=== PATIENT | female | born 1940 | race Caucasian/White ===

== ENCOUNTER 2016-12-11 04:18 | Inpatient (IN) | payer OTHER ==
--- NOTE | ~2016-12-11 | CO ---
Unit #: [id number] #: [id number] Patient: SHAHEEN FARIAS [id number] [address] [place], [place] [address] [id number] I MR#: [id number] NAME: SHAHEEN FARIAS ROOM: 559 Age: 76 Sex: F Admission Date: 12/11/2016 : 1940 Attending Physician: Lori Vuong M.D. Primary Care Physician: Malcolm Baker M.D. CONSULTATION REPORT REASON FOR CONSULT Pulmonary embolus. HISTORY OF PRESENT ILLNESS This is a pleasant 76-year-old with past medical history significant for peptic ulcer disease, COPD, and intracranial brain aneurysm status post clipping in 1992, who presented to the emergency room unable to breathe. The patient was just discharged from the hospital two days ago to home; however, she continued to be short of breath and early yesterday she was unable to catch her breath. Upon presentation to our emergency room, the patient had a CTA of her chest that showed multiple pulmonary emboli. The patient stated that she has never been diagnosed with any clotting disorder, however, her mother had some type of clots that she could not recall. The patient is up and walking at home but there is concern of falling and sometimes unstable gait. The patient denied any recent trauma or travel. She is not on any hormonal therapy. PAST MEDICAL HISTORY 1. COPD. 2. Emphysema. 3. GERD. 4. Peptic ulcer disease. 5. Intracranial aneurysm. 6. Chronic pain. PAST SURGICAL HISTORY 1. Brain aneurysm clipping. 2. Colonoscopy. 3. Polypectomy. HOME MEDICATIONS 1. Trazodone. 2. Fish oil. 3. Multivitamin. 4. Ventolin. 5. Omeprazole. 6. Colace. 7. Zyrtec. 8. Neurontin. Unit #: [id number] #: [id number] Patient: SHAHEEN FARIAS 9. Pravachol. 10. Spiriva. 11. Lidoderm. 12. Advair. 13. Combivent. 14. Xanax. ALLERGIES No known drug allergies. SOCIAL HISTORY The patient is a lifetime smoker. No history of alcohol or drug abuse. FAMILY HISTORY Hypertension. REVIEW OF SYSTEMS Twelve-point review of systems was obtained and negative except for what was mentioned in the HPI. PHYSICAL EXAMINATION VITAL SIGNS: Blood pressure 149/62, respiratory rate 20, O2 saturation 97% on room air. GENERAL: The patient is in acute distress. HEENT: Atraumatic, normocephalic. PERRLA. EOMI. NECK: Supple. No JVD. No lymphadenopathy. LUNGS: Decreased breath sounds bilaterally but no wheezing. HEART: S1, S2. Systolic murmur. ABDOMEN: Soft, nontender. Bowel sounds are positive. No hepatosplenomegaly. EXTREMITIES: Slightly edematous in the lower extremities but the upper extremities are fine. NEUROLOGIC: Awake, alert, and oriented x3. No focal motor/sensory deficit. SKIN: No rashes. DIAGNOSTIC STUDIES LABORATORY: Blood gas showed a pO2 of 60. Creatine 0.8, Hemoglobin 16.1. IMAGING: CT chest showed multiple pulmonary emboli. ASSESSMENT 1. Acute hypoxic respiratory failure. 2. Acute pulmonary embolus. 3. Chronic obstructive pulmonary disease. 4. Hypertension. 5. Hyperlipidemia. PLAN 1. Patient will be continued on oxygen and titrated down/off as tolerated. 2. Even though patient had the recent hospitalization, she stated that she was walking in the hallway and she was relatively active. She denied any recent travel, trauma or immobilization. 3. At this point, it seems that her pulmonary embolus is a provoked one rather than unprovoked which means she will need lifelong anticoagulation. However, the patient is well known to have a history of peptic ulcer disease and brain aneurysm in 1992, in Unit #: [id number] #: [id number] Patient: TARRENCE,NEOMIA H addition to unstable gait and history of falls. 4. At this point, patient is on Lovenox but we need to be very jackson and careful in choosing type of treatment and length of therapy. I think the safest will be to go with Coumadin to have the option of reversal if needed. The length of therapy needs to be determined by Hematology. 5. Patient will be continued on bronchodilator. 6. Will obtain 2D echo and troponin to rule out any right heart strain. Dictated by... Lashaun Gloria TD: 12/11/2016 21:57 JOB #: [id number] CONSULTATION REPORT X TEDDY FERNANDEZ MD CONSULTATION REPORT
--- NOTE | ~2016-12-11 | DS ---
Unit #: [id number] #: [id number] Patient: SHAHEEN DELGADILLO [id number] [address] [address] [id number] I MR#: [id number] NAME: SHAHEEN DELGADILLO. ROOM: 559 Age: 76 Sex: F Admission Date: 12/11/2016 : 1940 Discharge Date: 12/22/2016 Attending Physician: Lori Vuong M.D. Primary Care Physician: Malcolm Baker M.D. DISCHARGE SUMMARY FINAL DIAGNOSES 1. Acute hypoxic respiratory failure. 2. Pulmonary embolism. 3. Pulmonary hypertension. 4. Malnutrition. 5. Anticoagulation therapy with Coumadin. 6. Chronic obstructive pulmonary disease. 7. History of intracranial aneurysm in the past. 8. Chronic pain. 9. Tobacco abuse which is ongoing. 10. History of chronic degenerative disk disease and spinal stenosis. 11. Anxiety. DISCHARGE MEDICATIONS 1. Coumadin 4 mg p.o. daily. 2. Nebulizer treatment q.i.d. 3. Advair 250/50 one puff inhaler twice a day. 4. Spiriva one inhaler daily. 5. Neurontin 100 mg at bedtime. 6. Trazodone continue home dose. 7. Lidoderm continue home dose. 8. Xanax 0.5 mg q.i.d. p.r.n. 9. Colace 100 mg twice a day. 10. Pravachol 20 mg at bedtime. 11. Fish oil capsules daily. 12. Multivitamin daily. 13. Percocet 10/325 one tablet q.6 p.r.n. 14. Omeprazole 40 mg daily. CONSULTATION DURING HOSPITALIZATION 1. Dr. Wiseman from pulmonary services. 2. Hematology, Dr. Brown. HOSPITAL COURSE Ms. Delgadillo is a 76-year-old female who was admitted with acute shortness of breath. She was recently discharged from hospital on December 06, 2016, after being treated for COPD exacerbation. The patient returned back with the same kind of symptom. CTA of the chest was done and patient was found to have acute pulmonary embolism. The patient was started on Lovenox and later on switched to Coumadin. PT/OT was continued. We were awaiting subacute rehab placement, but patient is able to ambulate well and is able to go home. The patient will be discharged home with her daughter. Unit #: [id number] #: [id number] Patient: SHAHEEN DELGADILLO DIAGNOSTIC STUDIES LABORATORY: Lab workup on discharge: PT/INR is 16.6 and 1.6. BMP: Sodium 139, potassium 4.1, chloride 105, BUN 10, creatinine 1. WBC 8.6, hemoglobin 12.7, hematocrit 38.3, platelet count 227,000. Antithrombin III is 114, which is in normal range. Protein C activity is more than 200. IMAGING: Significant radiological studies done were: CT of the chest which showed definite pulmonary embolism present in the left system, largest embolus being in the left upper lobe where it is completely occluding the small branch. Ultrasound of lower extremities was negative for any DVT. PHYSICAL EXAMINATION VITAL SIGNS: On discharge, blood pressure is 105/47, respiratory rate 20, pulse is 79, temperature 98.6. CHEST: Decreased air entry bilaterally. CARDIOVASCULAR: S1, S2 positive. Regular rhythm. DISCHARGE INSTRUCTIONS 1. Followup primary care provider in one week. 2. [facility] to follow for PT/OT. 3. PT/INR on . 4. Arrange for home O2, keep saturation above 94%. 5. Patient's daughter is aware of patient's discharge. Dictated by... Lashaun Varma/christian TD: 12/23/2016 10:24 JOB #: [id number] DISCHARGE SUMMARY X Lori Vuong MD X DISCHARGE SUMMARY
--- NOTE | ~2016-12-11 | US84 ---
[id number] [facility] [address] [place], [place] [address] [id number] I MR#: [id number] Acc #: [id number] NAME: SHAHEEN FARIAS : 1940 SEX: F STUDY DATE/TIME: 12/11/2016 19:20 UNIT: C5B ROOM: 559 STUDY DESCRIPTION: US LE Veins Complete Ivan Stdy Attending Physician: Lori Vuong M.D. Ordering Physician: Tyler Rivera M.D. Primary Care Physician: Malcolm Baker M.D. MEDICAL IMAGING REPORT This report is preliminary unless electronic signature is present EXAM Bilateral lower extremity sherrell ultrasound. DATE OF EXAM 12/11/2016 HISTORY Bilateral lower extremity pain, chronic for 4 years. Shortness of air for 1 week. Pulmonary embolus on CT earlier today. TECHNIQUE Venous ultrasound examination of both lower extremities was performed using grayscale, spectral Doppler and color flow Doppler imaging. FINDINGS The examination is negative. There is no evidence of deep venous thrombus from the groin to the lower calf bilaterally. Visualized greater saphenous veins are also patent. IMPRESSION Negative examination. No evidence of lower extremity DVT. Dictated by... Rick Umanzor M.D. THIS IS AN ELECTRONICALLY VERIFIED REPORT Rick Umanzor M.D. at 12/12/2016 3:36 PM ECTOR/mile TD: 12/12/2016 00:29 JOB #: [id number] MEDICAL IMAGING REPORT COPY
--- NOTE | ~2016-12-11 | CR63 ---
[facility] A Service of [facility] RADIOLOGY TEXT RESULTS PATIENT: SHAHEEN FARIAS LOCATION: [place] [address] : [birth year] UNIT #: [id number] AGE: [address]: Lori Vuong MD SEX: F ORDER DR: [id number] [facility] [address] [place], [place] [address] [id number] I MR#: [id number] Acc #: [id number] NAME: SHAHEEN FARIAS. : 1940 SEX: F STUDY DATE/TIME: 12/15/2016 13:29 UNIT: [facility] ROOM: [facility] STUDY DESCRIPTION: CR Chest 2 View Attending Physician: Lori Vuong M.D. Ordering Physician: Dino Wiseman M.D. Primary Care Physician: Malcolm Baker M.D. MEDICAL IMAGING REPORT This report is preliminary unless electronic signature is present EXAM PA and lateral chest 12/15/2016 INDICATIONS Shortness of air, weakness for 3 days. COMPARISON 12/11/2016 FINDINGS Today's PA and lateral view of the chest is compared with 12/11/2016. Heart size and vascularity are normal and the lungs are clear. Bones are unremarkable. IMPRESSION No active disease. Dictated by... Vasu Javier M.D. THIS IS AN ELECTRONICALLY VERIFIED REPORT Vasu Javier M.D. at 12/15/2016 4:00 PM CASSY/ike TD: 12/15/2016 15:16 JOB #: [id number] MEDICAL IMAGING REPORT COPY
--- NOTE | ~2016-12-11 | CO ---
Unit #: [id number] #: [id number] Patient: SHAHEEN FARIAS [id number] [place] [id number] [facility]. [place], [place] [address] [id number] I MR#: [id number] NAME: SHAHEEN FARIAS. ROOM: 559 Age: 76 Sex: F Admission Date: 12/11/2016 : 1940 Attending Physician: Lori Vuong M.D. Primary Care Physician: Malcolm Baker M.D. CONSULTATION REPORT HISTORY OF PRESENT ILLNESS Ms. Fuller is a very pleasant 76-year-old lady with a diagnosis of acute pulmonary embolus, which was the reason for consult. The story is a very pleasant lady who is 76 years old. She has been a long-term smoker and continues to smoke. She is debilitated and talking to herself. She has difficulty getting even up a flight of stairs in her house to go to get in and she has difficulty getting to and from the bathroom. She certainly is not able to provide her activities of daily living and she developed COPD exacerbation, was recently hospitalized, was discharged home last Wednesday. She was readmitted with worsening shortness of breath that was acute and was found on CT scan to have pulmonary embolus. She was admitted to the hospital on that day. She had an ultrasound of the legs that was negative and she has a family history of her mother having a clot, but she was aged 86 and it was provoked. Her mother interestingly had 10 children, did not have a clot early in life. She has 2 daughters. She personally did not have a clot early in life. She does not have varicose veins. She does not have any other family history of clotting. Besides immobility, the smoking of 1 to 2 packs per day is a risk factor and the illness has been noted. REVIEW OF SYSTEMS 1. Positive for shortness of breath. 2. Negative for chest pain, she denies that. 3. Negative for nausea or vomiting. 4. Negative for swelling in the legs. 5. Negative for varicose veins. 12-point review of systems is otherwise negative except for being debilitated. She got an ECOG performance status of 3. PAST MEDICAL HISTORY Significant for: 1. Emphysema. 2. Peptic ulcer disease. 3. Intracranial aneurysm that was clipped. 4. Chronic pain. 5. Chronic debility and poor performance status. PAST SURGICAL HISTORY Positive for: 1. Brain aneurysm clipping. 2. Colonoscopy with polypectomy. SOCIAL HISTORY 1. Smoker with greater than 50 pack-year smoking history. She continues Unit #: [id number] #: [id number] Patient: SHAHEEN FARIAS to smoke at least a pack a day. 2. Denies alcohol. 3. Denies illicit drug use. FAMILY HISTORY Positive for her mother having a clot at age 86, but mother had 10 children, had no clotting problems and had no varicose veins. No other family history of clotting disorders is noted. PHYSICAL EXAMINATION VITAL SIGNS: This is a 76-year-old female, in no acute distress. VITAL SIGNS: She is with a blood pressure of 119/70, heart rate 77, and respirations are elevated today in the 20 to 22 range, but she appears comfortable at rest. Reportedly, she gets into respiratory distress if she moves at all. She is afebrile with a temperature of 98.1. HEENT: Her eyes show no scleral icterus. Pupils are equal. Mouth is moist. Hearing is intact. NECK: Supple. No JVD. Trachea midline. LUNGS: Decreased breath sounds symmetrically. Wheezing is noted. HEART: Regular rate and rhythm. No peripheral edema. ABDOMEN: Soft, nontender, and nondistended. She has no cervical or supraclavicular adenopathy. SKIN: No rashes, ulcers, or nodules. NEUROLOGIC: She is awake and alert, answers questions appropriately. Cranial nerves II through XII are grossly intact. Face is symmetric with no focal deficits. She musculoskeletal jackson had no clubbing, cyanosis, or edema today. She does not have any joint effusions or pain. No focal complaints. She did not walk because she gets short of breath even sitting up in bed at the current time. The remainder of the 12-point physical exam is negative. DIAGNOSTIC STUDIES IMAGING STUDIES: CT angio is positive for pulmonary embolus. Ultrasound of the lower extremities is negative for DVT. LABORATORY RESULTS: Review of laboratory studies showed hemoglobin and hematocrit of 16 and 57.9 and white count 10.9. PT and PTT of 10 and 23.4. ASSESSMENT AND PLAN 1. Very pleasant lady with a diagnosis of pulmonary embolus. Continue Lovenox. I think we certainly could switch her over to either Xarelto or Coumadin depending on what her insurance will cover or alternative Eliquis. I would leave her on long-term anticoagulation at this point. 2. She has tobacco use and I have told her that this is the single greatest thing that we can do to impact her clotting and that she needs to be off tobacco. We have talked about Nicorette minis. We have talked about patches. We have talked about other options. Today, she is stating that she gets some anxiety with life and uses tobacco as a crutch and we have talked about how to address that and I am going to check a few basic things for hypercoag. Certainly, the antiphospholipid antibodies and lupus anticoagulant because if that were positive, we really would need to add an aspirin on board. Additionally, we will have her screen for the major clotting risk factors, although the history does not support that. I am not going to do an extensive workup because she has not had a history of miscarriages, has not had clotting with , and her mother did not either. I would like to thank you for the consult. Unit #: [id number] #: [id number] Patient: SHAHEEN FARIAS Dictated by... Lashaun Villa/pina TD: 12/12/2016 20:14 JOB #: [id number] CONSULTATION REPORT X X CONSULTATION REPORT
--- NOTE | ~2016-12-11 | EKG ---
PATIENT: SHAHEEN FARIAS UNIT #: [id number] Ventricular Rate: 81 BPM Atrial Rate: 81 BPM P-R Interval: 118 ms QRS Duration: 78 ms Q-T Interval: 374 ms QTC Calculation(Bezet): 434 ms P [place]: 62 degrees Calculated R [place]: 160 degrees Calculated T [place]: -7 degrees Diagnosis Line: Normal sinus rhythm Diagnosis Line: Possible Left atrial enlargement Diagnosis Line: Right ventricular hypertrophy Diagnosis Line: Possible Lateral infarct (cited on or before Diagnosis Line: 02-DEC-2016) Diagnosis Line: Abnormal ECG Diagnosis Line: When compared with ECG of 02-DEC-2016 17:56, Diagnosis Line: No significant change was found Diagnosis Line: Confirmed by RAJ GRANADOS MD ([id number]) on 12/11/2016 Diagnosis Line: 5:24:14 PM INTERPRETING MD: DARWIN GRACIA
--- NOTE | ~2016-12-11 | HP ---
Unit #: [id number] #: [id number] Patient: SHAHEEN DELGADILLO [id number] [place] [id number] [facility]. [place], [place] [address] [id number] I MR#: [id number] NAME: SHAHEEN DELGADILLO ROOM: 559 Age: 76 Sex: F Admission Date: 12/11/2016 : 1940 Attending Physician: Lori Vuong M.D. Primary Care Physician: Malcolm Baker M.D. HISTORY AND PHYSICAL ADMISSION DIAGNOSES 1. Acute PE. 2. History of COPD. 3. History of intracranial aneurysm, status post clipping. 4. Chronic pain. 5. Continues tobacco use. HISTORY OF PRESENT ILLNESS Ms. Shaheen Delgadillo is a 76-year-old, female, patient of Dr. Navas, who comes to the emergency room with the complaints of acute onset of shortness of air and dyspnea with getting worse on exertion. Initially, patient was treated as presumed acute exacerbation of COPD. Patient is status post evaluation per pulmonary. CT angio was done, which showed an acute PE. Patient was started on a treatment dose of Lovenox and admitted. She denies any active chest pain. Denies any headache or dizziness. Denies any fever, chills, nausea, vomiting, diarrhea, or abdominal pain. She continues to smoke and has been a lifetime smoker. REVIEW OF SYSTEMS So, 12-point review of systems on this patient is basically negative, except as above. PAST MEDICAL HISTORY Significant for history of emphysema, peptic ulcer disease, intracranial aneurysm, and chronic pain. PAST SURGICAL HISTORY Significant for brain aneurysm clipping and colonoscopy with polypectomy. SOCIAL HISTORY She is an active smoker and has been an active smoker all her life. Denies any alcohol or illicit drug abuse. FAMILY HISTORY Unremarkable. PHYSICAL EXAMINATION GENERAL APPEARANCE: Patient is a 76-year-old, female in no acute distress. VITAL SIGNS: BP 119/70, heart rate 77, respirations 27, and temperature 98.1. HEENT: Head is atraumatic. Pupils are equal, round, and reactive to light and accommodation. Extraocular muscles intact. Oropharynx clear. NECK: Supple. No mass, no JVD, and no bruits. Unit #: [id number] #: [id number] Patient: SHAHEEN DELGADILLO H CHEST: Diminished bilaterally with some occasional expiratory wheezing. CARDIOVASCULAR: S1 and S2. No murmurs. ABDOMEN: Soft, nontender, and nondistended. LOWER EXTREMITIES: Without any cyanosis, clubbing, or edema. NEUROLOGIC: Patient grossly intact. No focal deficits. DIAGNOSTIC STUDIES IMAGING: Chest x-ray shows cardiomegaly. CT angio, again, positive for PE. CARDIOVASCULAR: 2D echo is pending. LABORATORY: Chemistry basically unremarkable. Set of cardiac enzymes negative. Coagulation panel: PT, INR, and PTT 10.1, 1, and 23.4. H and H 16.1 and 57.9 and white count 10.9. ASSESSMENT AND PLAN 1. Acute PE. Continue Lovenox. Hematologic consult is pending. 2. COPD. Continue bronchodilators. Status post evaluation per pulmonary. 3. History of intracranial aneurysm, status post clipping. 4. History of chronic pain. 5. Continue tobacco use. Counseled on importance of quitting. 6. GI and DVT prophylaxes. Continue current PPI and Lovenox. Dictated by Lashaun Kramer/sally TD: 12/12/2016 08:13 JOB #: [id number] HISTORY AND PHYSICAL X Tyler Rivera MD HISTORY AND PHYSICAL
--- NOTE | ~2016-12-11 | CR72 ---
[facility] A Service of [facility] & [facility] RADIOLOGY TEXT RESULTS PATIENT: SHAHEEN FARIAS LOCATION: [place] [address] : [birth year] UNIT #: [id number] AGE: [address]: Lori Vuong MD SEX: F ORDER DR: [id number] [facility] [address] [place], [place] [address] [id number] I MR#: [id number] Acc #: [id number] NAME: SHAHEEN FARIAS. : 1940 SEX: F STUDY DATE/TIME: 12/11/2016 03:55 UNIT: CEDOF ROOM: [address]48[address] STUDY DESCRIPTION: CR Chest Single View Portable Attending Physician: Lori Vuong M.D. Ordering Physician: Darrius Rose D.O. Primary Care Physician: Malcolm Baker M.D. MEDICAL IMAGING REPORT This report is preliminary unless electronic signature is present EXAM Portable chest, 12/11 at to 0355 hours. INDICATIONS Shortness of air, which is ongoing, but worse today. Patient recently in the hospital. FINDINGS AP portable chest is compared with 12/04/2016. The lungs are emphysematous, but clear except for granulomatous calcification on the left side. Cardiomegaly is stable. No pneumothorax. IMPRESSION Stable cardiomegaly with emphysema. No acute findings in the chest. Dictated by... Eliezer Prado Jr., M.D. THIS IS AN ELECTRONICALLY VERIFIED REPORT Eliezer Prado Jr., M.D. at 12/14/2016 7:20 AM SUE/sally TD: 12/11/2016 08:30 JOB #: [id number] MEDICAL IMAGING REPORT COPY
--- NOTE | ~2016-12-11 | A ---
[facility] Nutrition Therapy DATE: 12/21/16 Patient: SHAHEEN FARIAS Physician: KEYANA Address: [address] Room/Bed: [address] [place] [address], Zip: [place] [phone] Admit Date: 12/11/16 Date of : [birth year] Height: 5 3 Weight: 109 49.6 NUTRITIONAL ASSESSMENT: REASON: LOS NUTRITION ASSESSMENT 76 yo female admitted for acute hypoxic respiratory failure, PE, severe pulmonary HTN PMH: COPD, emphysema, PUD, pulmonary HTN Anthropometrics: Ht: 63" Adm wt: 50.8 kg BMI: 19.8 Labs: Reviewed. No new since 12/19. Meds: Coumadin, remeron, colace, lipitor, MOM, protonix, therapeutic formula, fish oil, NaCl I/O & Bowel function: 2300/2901, last BM 12/20 Skin Integrity: Scabbed area right ear Scar left side Bruising BUE Edema: None noted Diet: Regular Assessment: Chart reviewed, events noted. Pt admitted for SOA. RD seeing the pt for LOS nutrition assessment. RD assessed this pt during a recent previous admission on 12/03/16. At that time, the pt reported ~15# weight loss in 3 months (12% weight loss). Based on her weight today, the pt has lost an additional 6.6#, for a total of 21.6# weight loss. Please note, RD was not consulted during this admission, and malnutrition has been noted in the pt's chart. RD spoke with the pt at bedside. Pt reports eating poorly [employer] due to decreased appetite and not wanting to prepare meals; however, she reported that her MD gave her something to improve her appetite, and she is eating better now (reports ~50% of meals). RD reviewed the importance of adequate nutrient intake and weight gain/ maintenance. Pt agreed and reports that she occasionally receives Ensure supplements with her meals, and discussed having ondl-fs-psvbrqb foods on hand. RD encouraged the pt to consume Ensure BID, and will order this. Pt denied having any further questions, thankful for RD visit. Dx: Unplanned weight loss RT decreased appetite AEB 21.6# weight loss in 4 months, poor intake reported [employer]. Intervention: [facility] DATE: 12/21/16 Patient: SHAHEEN FARIAS Physician: KEYANA Address: [address] Room/Bed: [address] [place] [address], Zip: [place] [address] Admit Date: 12/11/16 Date of : [birth year] Height: 5 3 Weight: 109 49.6 1. Regular diet 2. 6 small meals 3. Ensure BID Monitoring, Evaluation and Goals: 1. Oral intake; tolerate >50-75% meals 2. Labs; WNL 3. Weight; prevent further weight loss, promote weight maintenance Recommendations: 1. Continue regular diet, adding 6 small meals to promote adequate nutrient intake. 2. Ensure vanilla once daily and Ensure strawberry once daily for supplemental nutrition. Pt is at mild-moderate nutritional risk. Respectfully, KYREE AGUILA RD, LD [facility] cc: client file
--- NOTE | ~2016-12-11 | CT16 ---
[facility] A Service of [facility] & [facility] RADIOLOGY TEXT RESULTS PATIENT: SHAHEEN FARIAS LOCATION: [facility] [id number] : 41 UNIT #: [id number] AGE: [address]: Lori Vuong MD SEX: F ORDER DR: [id number] [facility] [address] [facility]. [place], [place] [address] [id number] I MR#: [id number] Acc #: [id number] NAME: SHAHEEN FARIAS. : 1940 SEX: F STUDY DATE/TIME: 12/11/2016 6:36 UNIT: [facility] ROOM: [id number] STUDY DESCRIPTION: CT Angio Chest for PE Attending Physician: Lori Vuong M.D. Ordering Physician: Darrius Rose D.O. Primary Care Physician: Malcolm Baker M.D. MEDICAL IMAGING REPORT This report is preliminary unless electronic signature is present EXAM CT chest with pulmonary embolus protocol HISTORY Shortness of air for [address] chest 11/15/[address] exam was performed with one or more of the following radiation dose reduction techniques: automatic exposure control, adjustment of mA and/or kV according to patient size, and iterative reconstruction. FINDINGS The patient was given 80 cc of Isovue 370 and spiral imaging was performed through the chest. 3-D reconstructions of the pulmonary arteries were generated. There are multiple emboli present in the left pulmonary artery system. The largest one is in the left upper lobe branch where there is a long 3 x 7 mm embolus. In the left lower lobe branches, there are 2-3 tiny emboli measuring 5 mm or less. The aorta is normal in size, and there is no adenopathy. The visualized portions of the upper abdomen are normal. The lungs are clear. IMPRESSION 1. Definite pulmonary emboli present in the left system. The largest embolus being in the left upper lobe where it is completely occluding 1 small branch, and partially occluding the large branch. That embolus is about 3 cm in length, and wormlike. The other emboli are seen as small 5 mm or less filling defects in [facility] A Service of [facility] & [facility] RADIOLOGY TEXT RESULTS PATIENT: SHAHEEN FARIAS LOCATION: [facility] [address]-17 : 41 UNIT #: [id number] AGE: [address]: Lori Vuong MD SEX: F ORDER DR: the left lower lobe. 2. Otherwise, the study is negative. STAT * RESULT Dictated by... Vasu Javier M.D. THIS IS AN ELECTRONICALLY VERIFIED REPORT Vaus Javier M.D. at 12/11/2016 10:24 AM CASSY/betty TD: 12/11/2016 07:08 JOB #: [id number] MEDICAL IMAGING REPORT COPY
[2016-12-11 03:44] LABS: ARTERIAL BLD GAS O2 SATURATION 90.7 % (90.0-100.0); ARTERIAL BLOOD GAS CARBOXY HB 0.9 %sat (0.0-9.0); ARTERIAL BLOOD GAS HCO3 27.2 mmol/L; ARTERIAL BLOOD GAS MET HB 0.1 %sat (0.0-2.0); ARTERIAL BLOOD GAS PCO2 36.5 mmHg (35.0-45.0); ARTERIAL BLOOD GAS pH 7.479 (7.350-7.450)
[2016-12-11 03:45] LABS: ARTERIAL BLOOD GAS ART SITE LEFT BRACHIAL; ARTERIAL BLOOD GAS DELIVERY VENTURI MASK; ARTERIAL DRAW? YES
[2016-12-11 04:10] LABS: BASOPHIL% 0.1 % (0-2.5); EOSINOPHIL# 0.2 X10e3 (0-0.7); EOSINOPHIL% 1.5 % (0.0-7.0); HEMATOCRIT 47.9 % (35.0-45.0); HEMOGLOBIN 16.1 gm/dL (12.0-16.0); LYMPHOCYTE# 2.2 X10e3 (1.0-3.5); LYMPHOCYTE% 20.5 % (17.0-45.0); MEAN CELL VOLUME 96.6 FL (83-96); MEAN CORPUSCULAR HEMOGLOBIN 32.4 PG (28-34); MEAN CORPUSCULAR HGB CONC 33.6 g/dL (30-36); MONOCYTE# 1.2 X10e3 (0-1.0); NEUTROPHIL# 7.3 X10e3 (1.5-7.1); NEUTROPHIL% 66.9 % (40-75); PLATELET COUNT 261 X10e3 (140-420); RED BLOOD COUNT 4.96 X10e (3.90-5.30); RED CELL DISTRIBUTION WIDTH 14.5 % (11.0-15.5); WHITE BLOOD COUNT 10.9 X10e3 (4.0-10.5)
[2016-12-11 04:12] LABS: POC - CKMB 7.4 ng/mL (0.0-7.9); POC - TROPONIN <0.05 ng/mL (<=0.05)
[2016-12-11 04:14] LABS: DIFF IND NO
[~2016-12-11 04:18] MED LIST: ADVAIR 115-21; ADVAIR 250-501 EAC1 INH; ADVAIR 250-501 EACH IH; ADVAIR 250-501 EACH INH; ADVAIR INH; ALBUTEROL17 GM INH; ALPRAZOLAM PO; ANTIVERT PO; CELEBREX PO; CENTRUM SILVER PO; CIPRO PO; CIPRO250 MG PO; CLOBETASOL 0.0560 GM TOP; COMBIVENT U/D3 M2 INH; DEMEROL PO; DOCUSATE SODIU100 MG PO; FENTANYL1 PATCH .7 TOP; FISH OIL 1,001000 M1 PO; LIDODERM30 EA TOP; LORTAB 10/500 T1 TAB PO; NEURONTIN100 MG PO; NEXIUM PO; NICOTINE TRANSD21 MG EXT; OMEPRAZOLE20 M2 PO; PERCOCET; PERCOCET 10/3251 TAB PO; PERCOCET PO; PERCOCET10 PO; PHENERGAN PO; PRAVACHOL20 MG PO; PRILOSEC; PRILOSEC PO; PRILOSEC20 MG PO; PROTONIX PO; SPIRIVA18 MCG INH; SPIRIVA18 MCG PO; TRAZODONE HCL100 MG PO; TRAZODONE PO; XANAX0.5 M1 PO; ZYRTEC10 M1 PO
[2016-12-11 04:27] LABS: PARTIAL THROMBOPLASTIN TIME 23.4 SECONDS (23.5-31.3); PROTHROMBIN TIME (PATIENT) 10.1 SECONDS (9.6-11.5)
[2016-12-11 04:55] LABS: ALKALINE PHOSPHATASE 74 U/L (32-92); ALT (SGPT) 44 U/L (10-40); AST (SGOT) 30 U/L (10-42); BILIRUBIN, DIRECT 0.1 mg/dL (0.0-0.2); BILIRUBIN,INDIRECT 0.6 mg/dL (0.0-0.9); BILIRUBIN,TOTAL 0.7 mg/dL (0.2-2.0); BLOOD UREA NITROGEN 12 mg/dL (9-23); CALCIUM SERUM 9.2 mg/dL (8.4-10.2); CARBON DIOXIDE 28 mmol/L (22-31); CHLORIDE 100 mmol/L (100-111); CREATININE SERUM 0.8 mg/dL (0.6-1.4); GLOM FILT RATE Estimated ABOVE60 mL/min (>60); GLUCOSE FASTING 95 mg/dL (70-110); POTASSIUM 4.1 mmol/L (3.5-5.1); PROTEIN TOTAL SERUM 7.4 g/dL (6.0-8.3); SODIUM 139 mmol/L (135-145)
[2016-12-11 09:44] LABS: POC - TROPONIN <0.05 ng/mL (<=0.05)
[2016-12-12 09:22] LABS: HEMATOCRIT 44.2 % (35.0-45.0); HEMOGLOBIN 14.4 gm/dL (12.0-16.0); MEAN CELL VOLUME 97.6 FL (83-96); MEAN CORPUSCULAR HEMOGLOBIN 31.9 PG (28-34); MEAN CORPUSCULAR HGB CONC 32.7 g/dL (30-36); MEAN PLATELET VOLUME 8.6 FL (6.5-11.5); RED BLOOD COUNT 4.53 X10e (3.90-5.30); RED CELL DISTRIBUTION WIDTH 14.6 % (11.0-15.5); WHITE BLOOD COUNT 10.8 X10e3 (4.0-10.5)
[2016-12-12 09:51] LABS: BLOOD UREA NITROGEN 16 mg/dL (9-23); CALCIUM SERUM 9.2 mg/dL (8.4-10.2); CARBON DIOXIDE 28 mmol/L (22-31); CHLORIDE 104 mmol/L (100-111); CREATININE SERUM 0.8 mg/dL (0.6-1.4); GLOM FILT RATE Estimated ABOVE60 mL/min (>60); GLUCOSE FASTING 130 mg/dL (70-110); POTASSIUM 4.1 mmol/L (3.5-5.1); SODIUM 141 mmol/L (135-145)
[2016-12-12 17:35] LABS: PROTHROMBIN TIME (PATIENT) 10.8 SECONDS (9.6-11.5)
[2016-12-13 05:48] LABS: BASOPHIL# 0.1 X10e3 (0-0.3); BASOPHIL% 0.9 % (0-2.5); EOSINOPHIL% 0.4 % (0.0-7.0); HEMATOCRIT 40.3 % (35.0-45.0); HEMOGLOBIN 13.2 gm/dL (12.0-16.0); LYMPHOCYTE# 1.7 X10e3 (1.0-3.5); LYMPHOCYTE% 22.1 % (17.0-45.0); MEAN CELL VOLUME 96.1 FL (83-96); MEAN CORPUSCULAR HEMOGLOBIN 31.4 PG (28-34); MEAN CORPUSCULAR HGB CONC 32.7 g/dL (30-36); MEAN PLATELET VOLUME 8.3 FL (6.5-11.5); MONOCYTE# 0.8 X10e3 (0-1.0); NEUTROPHIL% 65.6 % (40-75); PLATELET COUNT 211 X10e3 (140-420); RED BLOOD COUNT 4.19 X10e (3.90-5.30); RED CELL DISTRIBUTION WIDTH 14.4 % (11.0-15.5); WHITE BLOOD COUNT 7.6 X10e3 (4.0-10.5)
[2016-12-13 05:52] LABS: DIFF IND NO
[2016-12-14 05:05] LABS: HEMATOCRIT 39.5 % (35.0-45.0); HEMOGLOBIN 13.1 gm/dL (12.0-16.0); MEAN CORPUSCULAR HEMOGLOBIN 31.7 PG (28-34); MEAN CORPUSCULAR HGB CONC 33.1 g/dL (30-36); MEAN PLATELET VOLUME 8.5 FL (6.5-11.5); RED BLOOD COUNT 4.12 X10e (3.90-5.30); RED CELL DISTRIBUTION WIDTH 14.3 % (11.0-15.5); WHITE BLOOD COUNT 8.9 X10e3 (4.0-10.5)
[2016-12-14 06:18] LABS: BLOOD UREA NITROGEN 14 mg/dL (9-23); CALCIUM SERUM 8.8 mg/dL (8.4-10.2); CARBON DIOXIDE 27 mmol/L (22-31); CHLORIDE 103 mmol/L (100-111); CREATININE SERUM 0.7 mg/dL (0.6-1.4); GLOM FILT RATE Estimated ABOVE60 mL/min (>60); GLUCOSE FASTING 87 mg/dL (70-110); POTASSIUM 4.1 mmol/L (3.5-5.1); SODIUM 142 mmol/L (135-145)
[2016-12-15 07:37] LABS: PROTHROMBIN TIME (PATIENT) 10.9 SECONDS (9.6-11.5)
[2016-12-15 21:06] LABS: PROTEIN C ACTIVITY >200 % (70-180); PROTEIN S 115 % (60-140)
[2016-12-16 06:50] LABS: HEMATOCRIT 39.8 % (35.0-45.0); HEMOGLOBIN 13.2 gm/dL (12.0-16.0); MEAN CELL VOLUME 96.3 FL (83-96); MEAN CORPUSCULAR HEMOGLOBIN 31.9 PG (28-34); MEAN CORPUSCULAR HGB CONC 33.1 g/dL (30-36); MEAN PLATELET VOLUME 8.7 FL (6.5-11.5); RED BLOOD COUNT 4.13 X10e (3.90-5.30); RED CELL DISTRIBUTION WIDTH 13.9 % (11.0-15.5); WHITE BLOOD COUNT 8.8 X10e3 (4.0-10.5)
[2016-12-16 07:41] LABS: BLOOD UREA NITROGEN 15 mg/dL (9-23); BUN/CREATININE RATIO 21.42; CALCIUM SERUM 8.1 mg/dL (8.4-10.2); CARBON DIOXIDE 25 mmol/L (22-31); CHLORIDE 104 mmol/L (100-111); CREATININE SERUM 0.7 mg/dL (0.6-1.4); GLOM FILT RATE Estimated ABOVE60 mL/min (>60); GLUCOSE FASTING 99 mg/dL (70-110); POTASSIUM 4.3 mmol/L (3.5-5.1); SODIUM 132 mmol/L (135-145)
[2016-12-17 05:52] LABS: INR 2.1
[2016-12-17 05:56] LABS: PROTHROMBIN TIME (PATIENT) 22.7 SECONDS (9.6-11.5)
[2016-12-18 05:13] LABS: CARDIOLIPIN IGG (LUPUS) <14 GPL (<=14); CARDIOLIPIN IGM (LUPUS) <12 MPL (<=12); DRVVT CONFIRM Negative (Negative); DRVVT MIX INTERP (LUPUS) Not Indicated (()); HEXAGONAL PHASE CONF (LUPUS) Weak Positive (Negative); IMM PTT LA MIX NOT CORRECTED (()); INR LUPUS 1.2 (()); PROTROMBIN TIME LUPUS 12.4 sec (9.0-11.5); PT (LA MIX STUDY) 12.4 sec (<=11.5); PTT MIX INTERP Has been added (()); PTT-LA 45 sec (<=40); PTT-LA SCREEN (LUPUS) 45 sec (<=40); THROMBIN TIME LUPUS 27 sec (13-19); dRVVT SCREEN (LUPUS) 46 sec (<=45)
[2016-12-18 06:35] LABS: HEMATOCRIT 38.3 % (35.0-45.0); HEMOGLOBIN 12.7 gm/dL (12.0-16.0); MEAN CELL VOLUME 96.1 FL (83-96); MEAN CORPUSCULAR HEMOGLOBIN 31.9 PG (28-34); MEAN CORPUSCULAR HGB CONC 33.2 g/dL (30-36); MEAN PLATELET VOLUME 8.7 FL (6.5-11.5); RED BLOOD COUNT 3.99 X10e (3.90-5.30); RED CELL DISTRIBUTION WIDTH 13.9 % (11.0-15.5); WHITE BLOOD COUNT 8.6 X10e3 (4.0-10.5)
[2016-12-18 06:39] LABS: INR 2.6; PROTHROMBIN TIME (PATIENT) 28.8 SECONDS (9.6-11.5)
[2016-12-19 05:38] LABS: INR 2.5; PROTHROMBIN TIME (PATIENT) 27.7 SECONDS (9.6-11.5)
[2016-12-19 07:08] LABS: CALCIUM SERUM 9.1 mg/dL (8.4-10.2); GLOM FILT RATE Estimated 57.4 mL/min (>60); POTASSIUM 4.1 mmol/L (3.5-5.1)
[2016-12-21 06:01] LABS: INR 1.9
[2016-12-22 05:49] LABS: INR 1.6; PROTHROMBIN TIME (PATIENT) 16.6 SECONDS (9.6-11.5)
[2016-12-23 08:16] LABS: INR 1.9; PROTHROMBIN TIME (PATIENT) 20.2 SECONDS (9.6-11.5)
[2016-12-23] MEDS ORDERED: COUMADIN4 MG PO (12:13)
== END 2016-12-23 14:31 | disposition home health service (06) | DRG 175 ==
LOC: CED 04:18 → CEDOF 05:15 → C5B 15:09
PROVIDERS: Emergency Medicine; Hospitalist; Internal Medicine; Internal Medicine Hematology & Oncology; Internal Medicine Pulmonary Disease; Physician Assistant Medical
PROC: B24BYZZ Ultrasonography of Heart with Aorta using Other Contrast (ICD-10-PCS; principal; 2016-12-12)
DX: I26.99 Other pulmonary embolism without acute cor pulmonale (principal); J96.01 Acute respiratory failure with hypoxia; E46 Unspecified protein-calorie malnutrition; Z68.1 Body mass index [BMI] 19.9 or less, adult; J44.9 Chronic obstructive pulmonary disease, unspecified; G89.29 Other chronic pain; F17.210 Nicotine dependence, cigarettes, uncomplicated; Z87.11 Personal history of peptic ulcer disease; K21.9 Gastro-esophageal reflux disease without esophagitis; E78.5 Hyperlipidemia, unspecified; I10 Essential (primary) hypertension; M62.3 Immobility syndrome (paraplegic); I27.2 Other secondary pulmonary hypertension; Z79.01 Long term (current) use of anticoagulants; F41.9 Anxiety disorder, unspecified
CPT/HCPCS: 36415; 36600; 71010; 71020; 71275; 80048; 80076; 82553; 82803; 82947; 83605; 83880; 84484; 85025; 85027; 85301; 85303; 85306; 85597; 85598; 85610; 85613; 85670; 85730; 86146; 86147; 86148; 93005; 93306; 93970; 94640; 94664; 94760; 97110; 97116; 97163; 97166; 97530; 97535; 99285; G8978-GP; G8979-GP; G8987-GO; G8988-GO; G8989-GO; J1650; J2930; Q9967

== ENCOUNTER 2017-01-18 14:42 | Inpatient (IN) | payer OTHER ==
--- NOTE | ~2017-01-18 | DS ---
Unit #: [id number] #: [id number] Patient: SHAHEEN FARIAS [id number] [facility]. [place], [place] [address] [id number] I MR#: [id number] NAME: SHAHEEN FARIAS. ROOM: 562 Age: 76 Sex: F Admission Date: 01/18/2017 : 1940 Discharge Date: 01/22/2017 Attending Physician: Sole Espinosa M.D. Primary Care Physician: Malcolm Baker M.D. DISCHARGE SUMMARY DISCHARGE DIAGNOSRS 1. Acute new small pulmonary embolism right upper lobe. 2. 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 3. Xijcd-nz-pxvfmgu hypoxic respiratory failure. 4. Acute exacerbation of chronic obstructive pulmonary disease. 5. A 1.3 cm right-sided thyroid nodule. 6. History of intracranial clipping. 7. Chronic pain syndrome, opioid dependency. 8. Chronic anemia. 9. Chronic respiratory failure secondary to chronic obstructive pulmonary disease on three liters of home oxygen. BRIEF HOSPITAL COURSE A 76-year-old pleasant female patient with past medical history that is significant for bilateral pulmonary embolism on Coumadin therapy with erratic INR, history of intracranial clipping, chronic respiratory failure secondary to COPD on 3 to 4 L of home oxygen, was admitted through the [facility] emergency room with complaints of progressively worsening shortness of breath, productive cough and feeling unwell since last three to four days. [address] scan with PE protocol was done on admission which showed a new small pulmonary embolism in the right upper lobe area and resolution of previous pulmonary emboli as per the radiologist. Patient continued to receive IV Solu-Medrol, bronchodilator nebulizers and gradually improved during the course of the hospitalization. Oncology/Hematology was consulted. They advised the patient to be switched to Xarelto for chronic anticoagulation. With the assistance of case management patient will be discharged home today to continue chronic anticoagulation and steroid taper. DISCHARGE FOLLOWUP Follow up with: 1. Primary care provider in one week. 2. Dr. Espinosa, pulmonary clinic, in two to three weeks. 3. Hematology/Oncology, Dr. Yao, in one month. DISCHARGE MEDICATIONS As per med rec. PHYSICAL EXAMINATION AT DISCHARGE VITAL SIGNS: Temperature is 98.6, pulse rate is 58, respiratory rate is 16, blood pressure is 145/71, saturation of 93% on 4 L of oxygen. HEART: S1, S2 are heard. Regular rate and rhythm. LUNGS: Decreased air entry. No rhonchi. Unit #: [id number] #: [id number] Patient: SHAHEEN FARIAS ABDOMEN: Abdomen is soft, nontender, no hepatosplenomegaly. Bowel sounds were normoactive. NEUROLOGIC: Is awake, alert and oriented to time, place and person. There is no gross focal sensory or motor deficit. EXTREMITIES: There is no cyanosis, clubbing or pedal edema. Discharge time greater than 45 minutes. Dictated by... Aureliano Soria M.D. MM/fidelina TD: 01/24/2017 14:50 JOB #: [id number] DISCHARGE SUMMARY Page 1 of 1 X YFN SORIA DISCHARGE SUMMARY
--- NOTE | ~2017-01-18 | CR72 ---
[facility] A Service of [facility] & [facility] RADIOLOGY TEXT RESULTS PATIENT: SHAHEEN FARIAS LOCATION: [place] [address] : 41 UNIT #: [id number] AGE: [address]: Sole Espinosa MD SEX: F ORDER DR: [id number] [facility] [place] [address] [place], [place] [address] [id number] I MR#: [id number] Acc #: [id number] NAME: SHAHEEN FARIAS : 1940 SEX: F STUDY DATE/TIME: 01/18/2017 19:47 UNIT: [facility] ROOM: [facility] STUDY DESCRIPTION: CR Chest Single View Portable Attending Physician: Sole Espinosa M.D. Ordering Physician: Sole Espinosa M.D. Primary Care Physician: Malcolm Baker M.D. MEDICAL IMAGING REPORT This report is preliminary unless electronic signature is present EXAM Portable chest HISTORY Shortness of air for 5 months. COPD exacerbation. FINDINGS The cardiac size and pulmonary vascularity are within normal limits. Small calcified granulomas in the left lung and calcified left hilar nodes. No airspace infiltrates or effusions. IMPRESSION No acute findings and no active disease. Dictated by... Rick Umanzor M.D. THIS IS AN ELECTRONICALLY VERIFIED REPORT Rick Umanzor M.D. at 01/19/2017 2:37 PM ANTONIOL/betty TD: 01/19/2017 00:49 JOB #: [id number] MEDICAL IMAGING REPORT Page 1 of 1 COPY
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
--- NOTE | ~2017-01-18 | HP ---
Unit #: [id number] #: [id number] Patient: SHAHEEN FARIAS [id number] [place], [place] [address] [id number] Dada MR#: [id number] NAME: SHAHEEN FARIAS. ROOM: 562 Age: 76 Sex: F Admission Date: 01/18/2017 : 1940 Attending Physician: Sole Espinosa M.D. Primary Care Physician: Malcolm Baker M.D. HISTORY AND PHYSICAL CHIEF COMPLAINT Shortness of breath. HISTORY OF PRESENT ILLNESS A 76-year-old female with a past medical history of pulmonary embolism, COPD, intracranial aneurysm, chronic pain, tobacco use, who presents with the complaint of cough, shortness of breath, increasing sputum production to my office. Patient admitted for COPD exacerbation. I am seeing her at bedside. She is complaining of shortness of breath. PAST MEDICAL HISTORY Emphysema, peptic ulcer disease, intracranial aneurysm, chronic pain. PAST SURGICAL HISTORY Brain aneurysm clipping and colonoscopy, polypectomy. SOCIAL HISTORY Active smoker. No alcohol. No drug abuse. FAMILY HISTORY None as per record. ALLERGIES Have been reviewed. MEDICATION As per MAR, has been reviewed. REVIEW OF SYSTEMS Positive pallor. No edema. No signs of any jaundice. The rest are as per history of present illness. The rest of a 12-point review of systems has been reviewed and is negative. PHYSICAL EXAMINATION VITAL SIGNS: Temperature 98. Pulse 87. Respiration 12. Blood pressure 130/70. NEUROLOGIC: Awake, alert, oriented. No neuro deficit. HEENT: PERRLA. NECK: Supple. No JVD. CHEST: Bilateral air entry. Bilateral mild rhonchi. GASTROINTESTINAL: Nontender. Soft. Bowel sounds positive. EXTREMITIES: No edema. Unit #: [id number] #: [id number] Patient: SHAHEEN FARIAS DIAGNOSTIC STUDIES Labs and imaging have been reviewed. ASSESSMENT Acute exacerbation of COPD, acute bronchitis. PLAN Continue IV antibiotic, IV steroid, GI and DVT prophylaxis, continue anticoagulation, get a troponin. The patient will be closely monitored. Please see orders for detailed plan. Dictated by Lashaun Rondon/milan TD: 01/20/2017 14:03 JOB #: [id number] HISTORY AND PHYSICAL Page 1 of 1 X Sole Espinosa MD X HISTORY AND PHYSICAL
--- NOTE | ~2017-01-18 | EKG ---
PATIENT: SHAHEEN FARIAS UNIT #: [id number] Ventricular Rate: 93 BPM Atrial Rate: 93 BPM P-R Interval: 138 ms QRS Duration: 78 ms Q-T Interval: 360 ms QTC Calculation(Bezet): 447 ms P [place]: 71 degrees Calculated R [place]: 147 degrees Calculated T [place]: -32 degrees Diagnosis Line: Normal sinus rhythm Diagnosis Line: Possible Left atrial enlargement Diagnosis Line: Right axis deviation Diagnosis Line: Pulmonary disease pattern Diagnosis Line: Right ventricular hypertrophy with repolarization Diagnosis Line: abnormality Diagnosis Line: T wave abnormality, consider inferior ischemia Diagnosis Line: Abnormal ECG Diagnosis Line: When compared with ECG of 11-DEC-2016 04:55, Diagnosis Line: No significant change was found Diagnosis Line: Confirmed by RAJ GRANADOS MD ([id number]) on 01/20/2017 Diagnosis Line: 10:56:10 PM INTERPRETING MD: DARWIN GRACIA
--- NOTE | ~2017-01-18 | CO ---
Unit #: [id number] #: [id number] Patient: SHAHEEN FARIAS [id number] [address] [place], [place] [address] [id number] I MR#: [id number] NAME: SHAHEEN FARIAS. ROOM: 562 Age: 76 Sex: F Admission Date: 01/18/2017 : 1940 Attending Physician: Sole Espinosa M.D. Primary Care Physician: Malcolm Baker M.D. Consultation Date: 01/21/2017 CONSULTATION REPORT REASON FOR EVALUATION Recurrent pulmonary emboli, please evaluate. HISTORY OF PRESENT ILLNESS The patient is a 76-year-old lady, who had a very small pulmonary embolus in November of this very well documented and was started on warfarin and it appears that she went home and was being followed by [facility] and control of the INR was very erratic. In fact, at one point the daughter tells me that the INR became normal. Because the nurse did not call them back, they did not restart the warfarin because they were told to stop it. It appears that her old emboli are improving and she was seen now with a new embolus. Still does not have any chest pain, just mild degree of increasing shortness of breath. Past history is otherwise negative for other clotting episodes. She had two pregnancies without clotting. She does have a history of chronic pain, COPD, and she had intracranial aneurysm which was clipped and has remained stable. Otherwise, past history is noncontributory. FAMILY HISTORY Negative for blood clots. SOCIAL HISTORY She states that she stopped smoking but on careful history it appears that she is still smoking but different kind. She is using electronic cigarettes. No alcohol usage. CHRONIC MEDICATIONS 1. Fish oil. 2. Multivitamin. 3. Ventolin. 4. Omeprazole. 5. Colace. 6. Zyrtec. 7. Trazodone. 8. Neurontin. 9. Advair. 10. Combivent. 11. Periodic Xanax. 12. Spiriva. 13. Pravachol. 14. Warfarin. ALLERGIES No known allergies. Unit #: [id number] #: [id number] Patient: SHAHEEN FARIAS REVIEW OF SYSTEMS Shortness of breath still persists. Tiredness still persists, otherwise 8 or 10 systems were within normal limits. PHYSICAL EXAMINATION GENERAL: On exam, she is not obese, in no acute distress. No supraclavicular, axillary, or groin nodes. LUNGS: Few crackles. No rales. CARDIOVASCULAR: Distant S1, S2. ABDOMEN: Scaphoid. No organomegaly. EXTREMITIES: Lower extremities: There was no edema. CENTRAL NERVOUS SYSTEM: Grossly intact. PELVIC/BREASTS: Not performed. DIAGNOSTIC STUDIES LABORATORY: Glucose 132, BUN 16, creatinine 0.8, sodium 136, potassium 4.6, chloride 104, CO2 of 23. Pro time has been erratic and it was 1.6 upon admission and sage up to 1.9 and today it is 1.7. Hemoglobin 11.4, hematocrit 34.8, white count 8100, platelets 255,000. IMAGING: CT angio done on January 20 shows that there is a new pulmonary embolus but the older emboli are all resolving or improved. IMPRESSION This 76-year-old lady who is a heavy smoker had unprovoked pulmonary emboli a month ago, had very erratic INR as an outpatient with 2.5 mg of warfarin and there was a period when the INR became normal. At this point, I am not going to consider this as a warfarin failure but due to those difficulties on the VNA and home followup, I would prefer to change her over to Xarelto 15 mg p.o. b.i.d. for 21 days then 20 mg with supper and keep her on Warfarin until she is (1) , and I stressed the fact to the patient and the daughter to quit smoking and to see me in three months. Will schedule outpatient followup. Dictated by... Karri Yao M.D. AMADO/christian TD: 01/22/2017 16:16 JOB #: [id number] CONSULTATION REPORT Page 1 of 1 X Karri Yao MD CONSULTATION REPORT
[~2017-01-18 14:42] MED LIST changes: +COUMADIN4 MG PO
[2017-01-18 20:17] LABS: HEMATOCRIT 42.3 % (35.0-45.0); HEMOGLOBIN 13.9 gm/dL (12.0-16.0); MEAN CELL VOLUME 95.9 FL (83-96); MEAN CORPUSCULAR HEMOGLOBIN 31.6 PG (28-34); MEAN CORPUSCULAR HGB CONC 32.9 g/dL (30-36); MEAN PLATELET VOLUME 8.4 FL (6.5-11.5); RED BLOOD COUNT 4.41 X10e (3.90-5.30); RED CELL DISTRIBUTION WIDTH 15.4 % (11.0-15.5); WHITE BLOOD COUNT 10.1 X10e3 (4.0-10.5)
[2017-01-18 20:31] LABS: INR 1.6; PROTHROMBIN TIME (PATIENT) 17.6 SECONDS (9.6-11.5)
[2017-01-18 20:54] LABS: BUN/CREATININE RATIO 14.44; CALCIUM SERUM 8.9 mg/dL (8.4-10.2); CREATININE SERUM 0.9 mg/dL (0.6-1.4); GLOM FILT RATE Estimated 62.6 mL/min (>60); POTASSIUM 3.9 mmol/L (3.5-5.1)
[2017-01-19 06:04] LABS: INR 1.6; PROTHROMBIN TIME (PATIENT) 17.2 SECONDS (9.6-11.5)
[2017-01-19 06:04] LABS: INFLUENZA A NEG (NEG); INFLUENZA B NEG (NEG)
[2017-01-20 06:46] LABS: HEMATOCRIT 34.3 % (35.0-45.0); MEAN CELL VOLUME 95.2 FL (83-96); MEAN CORPUSCULAR HEMOGLOBIN 31.4 PG (28-34); MEAN PLATELET VOLUME 8.3 FL (6.5-11.5); RED BLOOD COUNT 3.6 X10e (3.90-5.30); RED CELL DISTRIBUTION WIDTH 15.3 % (11.0-15.5); WHITE BLOOD COUNT 8.5 X10e3 (4.0-10.5)
[2017-01-20 06:51] LABS: INR 1.9; PROTHROMBIN TIME (PATIENT) 20.9 SECONDS (9.6-11.5)
[2017-01-20 07:06] LABS: BUN/CREATININE RATIO 16.66; CALCIUM SERUM 8.7 mg/dL (8.4-10.2); CREATININE SERUM 0.9 mg/dL (0.6-1.4); GLOM FILT RATE Estimated 62.6 mL/min (>60); POTASSIUM 4.4 mmol/L (3.5-5.1)
[2017-01-20 07:10] LABS: HEMOGLOBIN 11.3 gm/dL (12.0-16.0)
[2017-01-20 14:27] LABS: %MB 7.8 % (0.0-4.0); MB 10.5 ng/ml
[2017-01-21 07:36] LABS: HEMATOCRIT 34.8 % (35.0-45.0); HEMOGLOBIN 11.4 gm/dL (12.0-16.0); MEAN CELL VOLUME 95.2 FL (83-96); MEAN CORPUSCULAR HEMOGLOBIN 31.1 PG (28-34); MEAN CORPUSCULAR HGB CONC 32.6 g/dL (30-36); MEAN PLATELET VOLUME 8.4 FL (6.5-11.5); RED BLOOD COUNT 3.65 X10e (3.90-5.30); RED CELL DISTRIBUTION WIDTH 15.7 % (11.0-15.5); WHITE BLOOD COUNT 8.1 X10e3 (4.0-10.5)
[2017-01-21 07:52] LABS: PROTHROMBIN TIME (PATIENT) 21.8 SECONDS (9.6-11.5)
[2017-01-21 08:05] LABS: ALBUMIN SERUM 3.1 g/dL (3.5-5.0); BILIRUBIN,TOTAL 0.6 mg/dL (0.2-2.0); CALCIUM SERUM 8.5 mg/dL (8.4-10.2); CREATININE SERUM 0.8 mg/dL (0.6-1.4); GLOM FILT RATE Estimated 72.2 mL/min (>60); POTASSIUM 4.6 mmol/L (3.5-5.1); PROTEIN TOTAL SERUM 5.8 g/dL (6.0-8.3)
[2017-01-22 08:06] LABS: INR 1.7; PROTHROMBIN TIME (PATIENT) 18.1 SECONDS (9.6-11.5)
[2017-01-22] MEDS ORDERED: XARELTO20 MG PO (13:17)
[2017-01-22] MEDS ORDERED: PREDNISONE PO (13:18)
== END 2017-01-22 14:57 | disposition home or self-care (01) | DRG 175 ==
LOC: C5B 14:42
PROVIDERS: Internal Medicine
PROC: B32TZZZ Computerized Tomography (CT Scan) of Left Pulmonary Artery (ICD-10-PCS; principal; 2017-01-20)
PROC: B32SZZZ Computerized Tomography (CT Scan) of Right Pulmonary Artery (ICD-10-PCS; 2017-01-20)
DX: I26.99 Other pulmonary embolism without acute cor pulmonale (principal); J96.21 Acute and chronic respiratory failure with hypoxia; D53.9 Nutritional anemia, unspecified; J44.0 Chronic obstructive pulmonary disease with (acute) lower respiratory infection; J44.1 Chronic obstructive pulmonary disease with (acute) exacerbation; F11.20 Opioid dependence, uncomplicated; I27.82 Chronic pulmonary embolism; Z79.01 Long term (current) use of anticoagulants; J20.9 Acute bronchitis, unspecified; E04.1 Nontoxic single thyroid nodule; G89.4 Chronic pain syndrome; F17.210 Nicotine dependence, cigarettes, uncomplicated
CPT/HCPCS: 71010; 71275; 80048; 80053; 82550; 82553; 84484; 85027; 85379; 85610; 87804; 93005; 94640; 94760; J0696; J2920; J2930; Q9967

== ENCOUNTER 2017-02-22 13:27 | Inpatient (IN) | payer OTHER ==
--- NOTE | ~2017-02-22 | EKG ---
PATIENT: SHAHEEN FARIAS UNIT #: [id number] Ventricular Rate: 88 BPM Atrial Rate: 88 BPM P-R Interval: 142 ms QRS Duration: 80 ms Q-T Interval: 388 ms QTC Calculation(Bezet): 469 ms P [place]: 83 degrees Calculated R [place]: 153 degrees Calculated T [place]: -25 degrees Diagnosis Line: Sinus rhythm with Premature atrial complexes Diagnosis Line: Possible Lateral infarct , age undetermined Diagnosis Line: Baseline wander Diagnosis Line: ST and T wave abnormality, consider inferior Diagnosis Line: ischemia Diagnosis Line: ST and T wave abnormality, consider anterior Diagnosis Line: ischemia Diagnosis Line: Abnormal ECG Diagnosis Line: No previous ECGs available Diagnosis Line: Arm leads not reveresed Diagnosis Line: Diagnosis Line: Diagnosis Line: Diagnosis Line: Diagnosis Line: Confirmed by JUAN TORRES MD ([id number]) on 02/24/2017 Diagnosis Line: 9:48:23 AM INTERPRETING MD: MELISSA GRACIA
--- NOTE | ~2017-02-22 | CO ---
Unit #: [id number] #: [id number] Patient: SHAHEEN FARIAS [id number] [address] [place], [place] [address] [id number] I MR#: [id number] NAME: SHAHEEN FARIAS. ROOM: 227 Age: 76 Sex: F Admission Date: 02/22/2017 : 1940 Attending Physician: Tyler Rivera M.D. Primary Care Physician: Malcolm Baker M.D. CONSULTATION REPORT REASON FOR CONSULTATION Shortness of breath. HISTORY OF PRESENT ILLNESS A 76-year-old female with past medical history of pulmonary embolism, COPD, came in with a complaint of cough, shortness of breath, increasing sputum production for last two to three days. Symptom has been getting worse. I am seeing the patient at the bedside. She denies any nausea, vomiting, diarrhea. PAST MEDICAL HISTORY 1. Emphysema. 2. COPD. 3. Pulmonary embolism. 4. Surgical history. 5. Colonoscopy. 6. Polypectomy. 7. Brain aneurysm surgery. SOCIAL HISTORY Active smoker. No alcohol. No drug abuse. FAMILY HISTORY As per record. MEDICATIONS As per MAR, has been reviewed. PHYSICAL EXAMINATION VITAL SIGNS: Temperature 98, pulse 87, respirations 12, blood pressure 120/90. NEUROLOGIC: Awake, alert, oriented. No neuro deficit. HEENT: PERRLA plus 1. NECK: Supple. No JVD. CHEST: Bilateral air entry. Bilateral mild rhonchi. GASTROINTESTINAL: Nontender, soft. Bowel sounds positive. EXTREMITIES: No edema. SKIN: No rash. No ulcer. LYMPHATIC: No lymphadenopathy. DIAGNOSTIC STUDIES Labs and imaging have been reviewed. ASSESSMENT Unit #: [id number] #: [id number] Patient: SHAHEEN FARIAS 1. Acute hypoxic respiratory failure. 2. Acute on chronic exacerbation of chronic obstructive pulmonary disease. 3. Acute bronchitis. PLAN Plan is to continue patient on IV steroids, IV antibiotic, bronchodilator, gastrointestinal and deep venous thrombosis prophylaxis, pain management. Please see orders for detailed plan. Thank you very much for this consultation. Dictated by... Lashaun Rondon TD: 02/24/2017 16:42 JOB #: [id number] CONSULTATION REPORT Page 1 of 1 X Sole Espinosa MD CONSULTATION REPORT
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
--- NOTE | ~2017-02-22 | DS ---
Unit #: [id number] #: [id number] Patient: SHAHEEN FARIAS [id number] [address] [place], [place] [address] [id number] I MR#: [id number] NAME: SHAHEEN FARIAS. ROOM: 227 Age: 76 Sex: F Admission Date: 02/22/2017 : 1940 Discharge Date: 02/26/2017 Attending Physician: Tyler Rivera M.D. Primary Care Physician: Malcolm Baker M.D. DISCHARGE SUMMARY DISCHARGE DIAGNOSES 1. Acute exacerbation of chronic obstructive pulmonary disease. 2. Acute on chronic respiratory failure. 3. Bronchitis. 4. History of pulmonary embolism. 5. History of chronic pain. 6. Frequent falls. CONSULTS ON THIS HOSPITAL STAY Pulmonary, Dr. Espinosa. DIAGNOSTIC STUDIES IMAGING: CT head negative for any acute findings. Chest x-ray - No acute findings. HISTORY OF PRESENT HOSPITAL STAY Please refer to H and P done by my colleague for initial presentation on this female. ACTIVE PROBLEMS AND DIAGNOSES ON THIS HOSPITAL STAY Acute on chronic respiratory failure secondary to acute exacerbation of COPD. Was treated with bronchodilators, IV steroids. Was evaluated by pulmonary. Currently stable to be discharged on tapering dose of steroids. Continue bronchodilators. Outpatient followup with pulmonary. Questionable bronchitis. Was treated with Zithromax. Continue with Z-Rene. History of PE. On chronic anticoagulation. History of chronic pain. Continue home meds. Frequent falls. Status post evaluation per PT/OT. No skilled therapy recommended. Recommendations are to continue with home health. [facility] is following the patient. DISCHARGE MEDICATIONS 1. Proventil inhaler q.i.d. p.r.n. shortness of air. 2. Combivent inhaler t.i.d. 3. Advair 1 puff inhalation b.i.d. 4. Tapering dose prednisone. 5. Clobetasol topically b.i.d. 6. Spiriva inhaler daily. 7. Xarelto 20 mg daily. Unit #: [id number] #: [id number] Patient: SHAHEEN FARIAS 8. Gabapentin 100 mg at bedtime. 9. Trazodone 100 mg at bedtime. Please note that those have been decreased from 200 mg at bedtime to 100 mg at bedtime. 10. Zyrtec 10 mg daily. 11. Megace 625 mg p.o. daily. 12. Lidoderm topically p.r.n. back pain. 13. Xanax 0.5 mg t.i.d. p.r.n. anxiety. 14. Colace 100 mg daily. 15. Pravachol 20 mg at bedtime. 16. Fish oil 1,000 mg daily. 17. Z-Rene. 18. Home dose of Percocet 10/325 mg 1 tablet t.i.d. p.r.n. pain. 19. Omeprazole 20 mg daily. 20. DuoNeb p.r.n. DISPOSITION Going home with home health. FOLLOWUP 1. Follow up with primary care physician in 2-3 days. 2. Follow up with pulmonary, Dr. Espinosa, as an outpatient. Please note that patient was given a script at her request for Percocet, 24 pills, and Xanax, also 24 pills. Dictated by... Lashaun Kramer/yuko TD: 02/26/2017 15:35 JOB #: [id number] DISCHARGE SUMMARY Page 1 of 1 X Tyler Rivera MD X DISCHARGE SUMMARY
--- NOTE | ~2017-02-22 | HP ---
Unit #: [id number] #: [id number] Patient: SAHHEEN DELGADILLO [id number] [address] [place], [place] [address] [id number] I MR#: [id number] NAME: SHAHEEN DELGADILLO ROOM: 227 Age: 76 Sex: F Admission Date: 02/22/2017 : 1940 Attending Physician: Tyler Rivera M.D. Primary Care Physician: Malcolm Baker M.D. HISTORY AND PHYSICAL CHIEF COMPLAINT Shortness of breath. HISTORY OF PRESENTING ILLNESS Ms. Shaheen Delgadillo is a 76-year-old female who is very well known to me from multiple admissions. She was last discharged from the hospital on January 22, 2017. She has not been doing well for the last few days or so. She has been feeling very weak. She has been falling a lot. She was having shortness of breath, although she does not use oxygen all the time as per patient and patient's daughter who is in the room. Patient went to see Dr. Baker, and patient is being admitted to medical/surgical unit for acute COPD exacerbation and also generalized weakness and inability to ambulate with multiple falls. Patient does not complain of chest pain. She does not complain of abdominal pain. She does complain of coughing. No sputum production. Wheezing and shortness of breath. Patient has chronic respiratory failure and is on home O2. No history of fever, chills, or rigors. PAST MEDICAL HISTORY 1. Chronic obstructive pulmonary disease. 2. Peptic ulcer disease. 3. Intracranial aneurysm, status post stapling. 4. Anticoagulation therapy for pulmonary embolism. 5. Chronic pain. 6. Degenerative disk disease and spinal stenosis. 7. Tobacco abuse. PAST SURGICAL HISTORY 1. Brain aneurysm clipping. 2. Colonoscopy with polypectomy. SOCIAL HISTORY Patient lives at home with her daughter. According to her, she is smoking, but she is smoking e-cigarettes. She has been a smoker all her life. No history of alcohol abuse or drug abuse. FAMILY HISTORY Unremarkable. ALLERGIES No known drug allergies. MEDICATIONS Unit #: [id number] #: [id number] Patient: SHAHEEN DELGADILLO Medication reconciliation is being reconciled at this time. PHYSICAL EXAMINATION GENERAL: Patient is lying comfortably in bed. She has been evaluated in room 227. VITAL SIGNS: Blood pressure is 121/62, respiratory rate 16, pulse 108, and temperature 98.7. HEENT: Head is normocephalic. Eye movements are normal. Pale conjunctivae. NECK: Supple. CHEST: Decreased air entry bilaterally. Wheezing is heard. CARDIOVASCULAR: S1 and S2 positive. Regular rhythm. ABDOMEN: Soft. No tenderness. EXTREMITIES: Negative edema. CENTRAL NERVOUS SYSTEMS: Awake, alert, and oriented x3. No focal neurological deficit. DIAGNOSTIC STUDIES Pending. ASSESSMENT AND PLAN Patient is being admitted to medical/surgical unit with: 1. Acute on chronic hypoxic respiratory failure. 2. Acute exacerbation of chronic obstructive pulmonary disease. 3. Ongoing tobacco abuse. 4. Frequent falls at home. 5. Generalized weakness. 6. History of pulmonary embolism, on anticoagulation therapy. 7. History of chronic pain syndrome, degenerative joint disease, and spinal stenosis. PLAN Admit to med/surg unit. Dr. Espinosa has been consulted. IV steroid is being started. Mini-neb treatment will be started. CBC, CMP, cardiac enzymes, and EKG will be done. Chest x-ray, PA and lateral, will be done. CT scan of the head will be done. PT/OT will evaluate the patient after CT scan. Home medications will be reviewed. The plan of care has been discussed with patient and patient's daughter at length. Dictated by Lashaun Varma TD: 02/22/2017 17:26 JOB #: [id number] HISTORY AND PHYSICAL Page 1 of 1 X Lori Vuong MD X HISTORY AND PHYSICAL
--- NOTE | ~2017-02-22 | CT71 ---
[facility] A Service of [facility] RADIOLOGY TEXT RESULTS PATIENT: SHAHEEN FARIAS LOCATION: C2A 227-01 : 42 UNIT #: [id number] AGE: [address]: Tyler Rivera MD SEX: F ORDER DR: [id number] [facility] [address]. [place], [place] [address] [id number] I MR#: [id number] Acc #: [id number] NAME: SHAHEEN FARIAS. : 1940 SEX: F STUDY DATE/TIME: 02/22/2017 16:05 UNIT: C2A ROOM: 227 STUDY DESCRIPTION: CT Head Wo Contrast Attending Physician: Tyler Rivera M.D. Ordering Physician: Lori Vuong M.D. Primary Care Physician: Malcolm Baker M.D. MEDICAL IMAGING REPORT This report is preliminary unless electronic signature is present EXAM CT brain without contrast media, 02/22/2017 COMPARISON Examination is dated 03/22/2010. HISTORY Headache and dizziness 1 week. History of intracerebral aneurysm. TECHNIQUE Axial imaging of the brain was performed without contrast media and compared directly to a prior noncontrast scan of 03/22/2010. This CT exam was performed with one or more of the following radiation dose reduction techniques: Automatic exposure control, adjustment of mA and/or kV according to patient size, and iterative reconstruction. FINDINGS Redemonstrated are postop changes of right temporal craniotomy and aneurysm clipping at the expected location of the right MCA trifurcation. There is an area of encephalomalacia in the right temporal lobe, stable in appearance compared with the last study. There is no evidence of an acute hemorrhage. There is decreased attenuation in the right frontal white matter, also stable. There are small chronic-appearing lacunar infarcts in the left basal ganglia, also stable. Ventricular size and configuration has not changed, no mass lesions, mass effect, evidence of acute hemorrhage or edema. There is atherosclerotic calcifications in the carotid siphons. Patient does have evidence of right maxillary sinus disease. This is present on the patient's previous scan as well. CONCLUSION 1. Postsurgical changes of right MCA aneurysm clipping with [facility] A Service of [facility] RADIOLOGY TEXT RESULTS PATIENT: SHAHEEN FARIAS [id number] [birth year] UNIT #: [id number] AGE: [address]: Tyler Rivera MD SEX: F ORDER DR: encephalomalacia in the right temporal and right frontal lobes. 2. Generalized atrophy with no acute intracranial findings. 3. Chronic right maxillary sinusitis. Dictated by... Jacobo Bernard M.D. THIS IS AN ELECTRONICALLY VERIFIED REPORT Jacobo Bernard M.D. at 02/23/2017 7:10 AM JEFF/tracie TD: 02/22/2017 17:58 JOB #: [id number] MEDICAL IMAGING REPORT Page 1 of 1 COPY
--- NOTE | ~2017-02-22 | EKG ---
PATIENT: SHAHEEN FARIAS UNIT #: [id number] Ventricular Rate: 78 BPM Atrial Rate: 78 BPM P-R Interval: 136 ms QRS Duration: 82 ms Q-T Interval: 442 ms QTC Calculation(Bezet): 503 ms P [place]: 77 degrees Calculated R [place]: 157 degrees Calculated T [place]: -14 degrees Diagnosis Line: Sinus rhythm with Premature supraventricular Diagnosis Line: complexes Diagnosis Line: Possible Lateral infarct (cited on or before Diagnosis Line: 22-FEB-2017) Diagnosis Line: T wave abnormality, consider anterior ischemia Diagnosis Line: Baseline wander Diagnosis Line: Abnormal ECG Diagnosis Line: When compared with ECG of 22-FEB-2017 15:41, Diagnosis Line: (unconfirmed) Diagnosis Line: Serial changes of Lateral infarct Present Diagnosis Line: Confirmed by JUAN TORRES MD ([id number]) on 02/24/2017 Diagnosis Line: 9:59:30 AM INTERPRETING MD: MELISSA GRACIA
[~2017-02-22 13:27] MED LIST changes: +PREDNISONE PO; +XARELTO20 MG PO
[2017-02-22] MEDS ORDERED: DUONEB (14:17)
[2017-02-22] MEDS ORDERED: MEGACE ES625 MG/5 M PO (14:18)
[2017-02-22 14:51] LABS: HEMATOCRIT 34.3 % (35.0-45.0); MEAN CELL VOLUME 93.8 FL (83-96); MEAN CORPUSCULAR HEMOGLOBIN 30.2 PG (28-34); MEAN CORPUSCULAR HGB CONC 32.2 g/dL (30-36); MEAN PLATELET VOLUME 8.2 FL (6.5-11.5); RED BLOOD COUNT 3.66 X10e (3.90-5.30); RED CELL DISTRIBUTION WIDTH 16.7 % (11.0-15.5); WHITE BLOOD COUNT 8.2 X10e3 (4.0-10.5)
[2017-02-22 14:55] LABS: ALBUMIN SERUM 2.9 g/dL (3.5-5.0); BILIRUBIN,TOTAL 0.3 mg/dL (0.2-2.0); BUN/CREATININE RATIO 23.75; CALCIUM SERUM 8.2 mg/dL (8.4-10.2); CREATININE SERUM 0.8 mg/dL (0.6-1.4); GLOM FILT RATE Estimated 72.2 mL/min (>60); POTASSIUM 3.1 mmol/L (3.5-5.1); PROTEIN TOTAL SERUM 6.6 g/dL (6.0-8.3)
[2017-02-22 15:52] LABS: %MB 7.7 % (0.0-4.0); MB 6.1 ng/ml
[2017-02-23 06:47] LABS: CK TOTAL 50 IU/L (26-140)
[2017-02-24 06:29] LABS: BUN/CREATININE RATIO 13.75; CALCIUM SERUM 8.3 mg/dL (8.4-10.2); CREATININE SERUM 0.8 mg/dL (0.6-1.4); GLOM FILT RATE Estimated 72.2 mL/min (>60); POTASSIUM 3.9 mmol/L (3.5-5.1)
[2017-02-24 08:50] LABS: HEMATOCRIT 32.1 % (35.0-45.0); HEMOGLOBIN 10.3 gm/dL (12.0-16.0); MEAN CELL VOLUME 93.8 FL (83-96); MEAN CORPUSCULAR HEMOGLOBIN 29.9 PG (28-34); MEAN CORPUSCULAR HGB CONC 31.9 g/dL (30-36); MEAN PLATELET VOLUME 8.1 FL (6.5-11.5); RED BLOOD COUNT 3.42 X10e (3.90-5.30); RED CELL DISTRIBUTION WIDTH 16.4 % (11.0-15.5); WHITE BLOOD COUNT 10.7 X10e3 (4.0-10.5)
[2017-02-24 09:47] LABS: ALBUMIN SERUM 2.9 g/dL (3.5-5.0); BILIRUBIN,TOTAL 0.1 mg/dL (0.2-2.0); CALCIUM SERUM 8.6 mg/dL (8.4-10.2); CREATININE SERUM 0.8 mg/dL (0.6-1.4); GLOM FILT RATE Estimated 72.2 mL/min (>60); POTASSIUM 3.8 mmol/L (3.5-5.1); PROTEIN TOTAL SERUM 5.9 g/dL (6.0-8.3)
[2017-02-26] MEDS ORDERED: Z PAK (14:01)
== END 2017-02-26 15:59 | disposition home or self-care (01) | DRG 189 ==
LOC: C2A 13:27
PROVIDERS: Hospitalist; Internal Medicine; Physician Assistant Medical
DX: J96.21 Acute and chronic respiratory failure with hypoxia (principal); J44.0 Chronic obstructive pulmonary disease with (acute) lower respiratory infection; J44.1 Chronic obstructive pulmonary disease with (acute) exacerbation; Z87.11 Personal history of peptic ulcer disease; Z79.01 Long term (current) use of anticoagulants; F17.200 Nicotine dependence, unspecified, uncomplicated; Z86.711 Personal history of pulmonary embolism; Z91.81 History of falling; G89.4 Chronic pain syndrome; M48.00 Spinal stenosis, site unspecified; R53.1 Weakness; Z86.010 Personal history of colon polyps; J20.9 Acute bronchitis, unspecified
CPT/HCPCS: 70450; 71020; 80048; 80053; 82550; 82553; 84484; 85027; 93005; 94640; 94664; 94760; 97161; 97165; G8978-GP; G8979-GP; G8980-GP; G8987-GO; G8988-GO; G8989-GO; J0456; J2920; J2930

== ENCOUNTER 2017-06-02 14:05 | Emergency (ER) | payer OTHER ==
--- NOTE | ~2017-06-02 | EKG ---
PATIENT: SHAHEEN FARIAS UNIT #: [id number] Ventricular Rate: 89 BPM Atrial Rate: 89 BPM P-R Interval: 134 ms QRS Duration: 84 ms Q-T Interval: 402 ms QTC Calculation(Bezet): 489 ms P [place]: 84 degrees Calculated R [place]: 139 degrees Calculated T [place]: -61 degrees Diagnosis Line: Sinus rhythm with Premature atrial complexes Diagnosis Line: Possible Left atrial enlargement Diagnosis Line: Right axis deviation Diagnosis Line: Pulmonary disease pattern Diagnosis Line: Right ventricular hypertrophy Diagnosis Line: ST and T wave abnormality, consider inferior Diagnosis Line: ischemia Diagnosis Line: ST and T wave abnormality, consider anterolateral Diagnosis Line: ischemia Diagnosis Line: Prolonged QT Diagnosis Line: Abnormal ECG Diagnosis Line: When compared with ECG of 23-FEB-2017 06:49, Diagnosis Line: Borderline criteria for Lateral infarct are no Diagnosis Line: longer Present Diagnosis Line: T wave inversion now evident in Lateral leads Diagnosis Line: Confirmed by RAJ GRANADOS MD ([id number]) on 06/03/2017 Diagnosis Line: 6:47:14 PM INTERPRETING MD: DARWIN GRACIA
--- NOTE | ~2017-06-02 | CR72 ---
[facility] A Service of [facility] RADIOLOGY TEXT RESULTS PATIENT: SHAHEEN FARIAS LOCATION: [facility] : 41 UNIT #: [id number] AGE: [address]: Keyur De La O MD SEX: F ORDER DR: [id number] [facility] [address] [place], [place] [address] [id number] MR#: [id number] Acc #: [id number] NAME: SHAHEEN FARIAS. : 1940 SEX: F STUDY DATE/TIME: 06/02/2017 15:01 UNIT: [facility] ROOM: STUDY DESCRIPTION: CR Chest Single View Portable Ordering Physician: [facility] Primary Care Physician: Malcolm Baker M.D. MEDICAL IMAGING REPORT This report is preliminary unless electronic signature is present EXAM Portable chest INDICATIONS Shortness of air beginning today. COMPARISON STUDIES 02/22/2017. FINDINGS Portable view of the chest obtained. Heart size and vascularity are normal. There is mild left base atelectasis. Right lung is clear. Bones are unremarkable. IMPRESSION Mild right and mild left base atelectasis, otherwise no active disease. Dictated by... Vasu Javier M.D. THIS IS AN ELECTRONICALLY VERIFIED REPORT Vasu Javier M.D. at 06/02/2017 8:15 PM FEL/pcl TD: 06/02/2017 19:08 JOB #: [id number] MEDICAL IMAGING REPORT Page 1 of 1 COPY
[~2017-06-02 14:05] MED LIST changes: +DUONEB; +MEGACE ES625 MG/5 M PO; +Z PAK
[2017-06-02] MEDS ORDERED: PRILOSEC PO (15:02)
[2017-06-02] MEDS ORDERED: ADVAIR 250-501 EAC1 INH (15:03)
[2017-06-02] MEDS ORDERED: DESYREL100 MG PO (15:03)
[2017-06-02] MEDS ORDERED: SPIRIVA18 MCG PO (15:03)
[2017-06-02] MEDS ORDERED: PERCOCET10 PO (15:04)
[2017-06-02] MEDS ORDERED: XARELTO20 MG PO (15:04)
[2017-06-02] MEDS ORDERED: XANAX0.5 M1 PO (15:04)
[2017-06-02] MEDS ORDERED: FLORINEF0.1 M1 PO (15:04)
[2017-06-02] MEDS ORDERED: COL-RITE50 MG PO (15:04)
[2017-06-02] MEDS ORDERED: MEGESTROL625 MG/5 M PO (15:05)
[2017-06-02] MEDS ORDERED: NEURONTIN100 MG PO (15:05)
[2017-06-02] MEDS ORDERED: ALL DAY ALLERGY10 M3 PO (15:06)
[2017-06-02 15:26] LABS: BASOPHIL# 0.1 X10e3 (0-0.3); BASOPHIL% 1.6 % (0-2.5); EOSINOPHIL# 0.3 X10e3 (0-0.7); EOSINOPHIL% 4.7 % (0.0-7.0); HEMATOCRIT 26.1 % (35.0-45.0); HEMOGLOBIN 8.2 gm/dL (12.0-16.0); LYMPHOCYTE# 1.8 X10e3 (1.0-3.5); LYMPHOCYTE% 28.5 % (17.0-45.0); MEAN CELL VOLUME 78.5 FL (83-96); MEAN CORPUSCULAR HEMOGLOBIN 24.8 PG (28-34); MEAN CORPUSCULAR HGB CONC 31.5 g/dL (30-36); MEAN PLATELET VOLUME 8.5 FL (6.5-11.5); MONOCYTE# 0.7 X10e3 (0-1.0); MONOCYTE% 11.6 % (3.0-12.0); NEUTROPHIL# 3.4 X10e3 (1.5-7.1); NEUTROPHIL% 53.6 % (40-75); PLATELET COUNT 260 X10e3 (140-420); RED BLOOD COUNT 3.32 X10e (3.90-5.30); RED CELL DISTRIBUTION WIDTH 19.9 % (11.0-15.5); WHITE BLOOD COUNT 6.3 X10e3 (4.0-10.5)
[2017-06-02 15:28] LABS: DIFF IND NO
[2017-06-02 15:40] LABS: INR 1.4; PARTIAL THROMBOPLASTIN TIME 32.4 SECONDS (23.5-31.3); PROTHROMBIN TIME (PATIENT) 15.1 SECONDS (10.0-11.7)
[2017-06-02 15:46] LABS: POC - TROPONIN <0.05 ng/mL (<=0.05)
[2017-06-02 15:58] LABS: BUN/CREATININE RATIO 21.42; CALCIUM SERUM 8.1 mg/dL (8.4-10.2); CREATININE SERUM 0.7 mg/dL (0.6-1.4); GLOM FILT RATE Estimated 84.8 mL/min (>60); POTASSIUM 3.3 mmol/L (3.5-5.1)
== END 2017-06-02 18:00 | disposition home or self-care (01) ==
LOC: CED 14:05
PROVIDERS: Emergency Medicine
DX: J44.1 Chronic obstructive pulmonary disease with (acute) exacerbation (principal); D64.9 Anemia, unspecified; F17.210 Nicotine dependence, cigarettes, uncomplicated; Z18.9 Retained foreign body fragments, unspecified material
CPT/HCPCS: 36415; 71010; 80048; 82553; 83880; 84484; 85025; 85610; 85730; 93005; 94640; 96374; 99285; J2930